=== PATIENT | female | born 1950 | race African-American/Black ===

== ENCOUNTER 2022-11-23 01:39 | Emergency (ER) | payer OTHER | END 2022-11-23 02:23 | disposition left against medical advice (07) | LOC: ER 01:39 | DX: Z53.21 Procedure and treatment not carried out due to patient leaving prior to being seen by health care provider (principal) ==

== ENCOUNTER 2023-06-27 23:24 | Emergency (ER) | payer OTHER ==
[~2023-06-27] VITALS: Ht 167.6 cm; Wt 82.0 kg
[~2023-06-27 23:24] MED LIST: ALBU05 IH; APIX5TAB PO; CICL6.1H2 INH; DICL100G58 TP; DICY-18 MT; ERGO1250; FURO20TA4 PO; HYDR453.3 TP; LISI20TA31 PO; METF-414 PO; METO5TAB2 PO; MONT-39 PO; PANT40TA51 PO; ROSU20TA2 PO; SUCR1TAB PO
[2023-06-27 23:48] VITALS: O2SAT 97
[2023-06-28 00:03] LABS: HEMATOCRIT. 34.1 % (36.0-48.0); HEMOGLOBIN. 12.5 g/dL (12.0-16.0); MEAN CORPUSCULAR HEMOGLOBIN 33.9 pg (28.0-32.0); MEAN CORPUSCULAR HGB CONC 36.5 g/dL (31.0-37.0); MEAN CORPUSCULAR VOLUME 92.9 fL (81.0-99.0); MEAN PLATELET VOLUME 6.8 fl (7.4-10.4); PLATELET 356 x1000/uL (130-400); RED BLOOD CELL COUNT 3.67 mill/uL (4.2-5.4); RED CELL DISTRIBUTION WIDTH 15.8 % (11.6-14.6); WHITE BLOOD COUNT 10.5 x1000/uL (4.5-11.0)
[2023-06-28 00:09] LABS: DIFFERENTIAL COMMENT 1
[2023-06-28 00:12] LABS: CHLORIDE 100 mEq/L (98-107); INDEX HEMOLYSI 1 (1-3); INDEX ICTERIC 1 (1-4); INDEX LIPEMIC 1 (1-3); POTASSIUM 3.7 mEq/L (3.5-5.1); SODIUM 132 mEq/L (136-145)
[2023-06-28 00:14] LABS: INR 1.1; PROTHROMBIN TIME 11.9 sec (9.6-11.0)
[2023-06-28 00:20] LABS: ALANINE AMINOTRANSFERASE 24 IU/L (13-61); ALBUMIN 1.3 g/dL (3.4-5.0); ASPARTATE AMINOTRANSFERASE 33 IU/L (15-37); BILIRUBIN TOTAL 0.5 mg/dL (0.1-1.0); CARBON DIOXIDE 25 mEq/L (21-32); CREATININE 0.4 mg/dL (0.6-1.3); GLUCOSE 142 mg/dL (70-105); PROTEIN TOTAL 4.8 g/dL (6.0-8.3); UREA NITROGEN BLOOD 15 mg/dL (7-21)
[2023-06-28 02:44] LABS: ATYPICAL LYMPHOCYTES 1; PLATELET ESTIMATE NORMAL
[2023-06-28] MEDS ORDERED: KETOROLAC 30MG/ML VIAL IV NR (04:15)
[2023-06-28] MEDS ORDERED: SODIUM CHLORIDE 0.9% 1,000 ML IV NR (04:15)
[2023-06-28 05:22] VITALS: BP 114/88; PULSE 86; RESP 17; TEMP 98.4
== END 2023-06-28 06:00 | disposition short-term general hospital (02) ==
LOC: ER 23:24
DX: R10.84 Generalized abdominal pain (principal); I11.0 Hypertensive heart disease with heart failure; I50.9 Heart failure, unspecified; J45.909 Unspecified asthma, uncomplicated; E78.00 Pure hypercholesterolemia, unspecified; Z79.899 Other long term (current) drug therapy
CPT/HCPCS: 99285; 80053; 83605; 83690; 85025; 85610; 36415; 74176; 96374; 96361; J1885